=== PATIENT | female | born 1995 ===

== ENCOUNTER 2022-02-05 19:19 | Outpatient (CLI) | payer OTHER ==
[2022-02-05] MEDS ORDERED: LACTATED RINGERS 1,000 ML IV ONE (20:25)
[2022-02-05] MEDS ORDERED: LACTATED RINGERS 1,000 ML ONE (20:28)
[2022-02-05 20:42] LABS: Bacteria,Urine 1+ /HPF (Negative); Bilirubin,Urine NEG (Negative); Blood,Urine NEG (Negative); Color,Urine Yellow (Yellow); Mucus,Urine 3+ /HPF; Urobilinogen,Urine < 2.0 mg/dL (<2.0)
[2022-02-05 20:59] VITALS: BP 118/67
== END 2022-02-05 22:31 | disposition home or self-care (01) ==
LOC: TRG 19:19 → APU 19:22 → TRG 22:31
PROVIDERS: ATTEND Obstetrics & Gynecology
DX: O42.913 Preterm premature rupture of membranes, unspecified as to length of time between rupture and onset of labor, third trimester (principal); O26.893 Other specified pregnancy related conditions, third trimester; R10.2 Pelvic and perineal pain; Z3A.35 35 weeks gestation of pregnancy
CPT/HCPCS: 59025; 81001; 96360; J7120

== ENCOUNTER 2022-02-08 19:22 | Inpatient (IN) | payer OTHER ==
[2022-02-08] MEDS ORDERED: LACTATED RINGERS 500 ML IV ONE (20:07)
[2022-02-08] MEDS ORDERED: PENICILLIN G POTASSIUM 5 MIL.UNITS in SODIUM CHLORIDE 0.9% 50 ML IV ONE (21:08)
[2022-02-08] MEDS ORDERED: ePHEDrine SULFATE 50 MG/1 ML INJ IV PRN (21:08)
[2022-02-08] MEDS ORDERED: NalbUPHINE 10 MG/1 ML INJ IV PRN (21:08)
[2022-02-08] MEDS ORDERED: TERBUTALINE 1 MG/1 ML INJ SUB-Q PRN (21:08)
[2022-02-08] MEDS ORDERED: CARBOPROST TROMETHAMINE 250 MCG/1 ML INJ IM PRN (21:08)
[2022-02-08] MEDS ORDERED: fentaNYL 100 MCG/2 ML INJ IV PRN (21:08)
[2022-02-08] MEDS ORDERED: METHYLERGONOVINE MALEATE 0.2 MG/ML VIAL IM PRN (21:08)
[2022-02-08] MEDS ORDERED: ACETAMINOPHEN 325 MG TAB PO PRN ×2 (21:08→23:04)
[2022-02-08] MEDS ORDERED: LACTATED RINGERS 1,000 ML IV SCH (21:15)
--- NOTE | 2022-02-08 21:20 | History and Physical Report ---
History of Present Illness Date of examination: 02/08/22 Date of admission: 02/08/2022 Chief complaint: Contractions History of present illness: 26-year-old at 36-2/7 weeks gestation presents to OB triage reporting regular and painful contractions occurring every 2 minutes. No vaginal bleeding. No leakage of fluid. Good movement. In OB triage, the cervical exam was noted to be 8 cm dilated. She is admitted to labor and delivery in labor. Past History Past Medical History: no pertinent history Past Surgical History: no surgical history Social history: no significant social history - Obstetrical History Expected Date of Delivery: 03/06/22 Actual Gestation: 36 Week(s) 2 Day(s) : 4 Para: 3 Number of Pregnancies: 3 Medications and Allergies Allergies Allergy/AdvReac Type Severity Reaction Status Date / Time No Known Allergies Allergy Unverified 02/05/22 20:24 Home Medications Medication Instructions Recorded Confirmed Last Taken Type Plus Iron Tablet 1 tab PO QDAY 02/05/22 02/05/22 02/05/22 10:00 History Active Meds: Active Medications Acetaminophen (Acetaminophen 325 Mg Tab) 650 mg PO Q4H PRN PRN Reason: Pain, Mild (1-3) Betamethasone Acet/Betameth SodPhos (Betamet Acet/Betamet Na Ph 6 Mg/Ml Inj 5 Ml Mdv) 12 mg IM Q24HR PAUL Stop: 02/09/22 10:01 Carboprost Tromethamine (Carboprost Tromethamine 250 Mcg/1 Ml Inj) 250 mcg IM ONCE PRN PRN Reason: Uterine Bleeding Ephedrine Sulfate (Ephedrine Sulfate 50 Mg/1 Ml Inj) 10 mg IV Q2M PRN PRN Reason: Hypotension Fentanyl (Fentanyl 100 Mcg/2 Ml Inj) 100 mcg IV Q2H PRN PRN Reason: Pain,Severe (7-10) LABOR PAIN Lactated Ringer's (Lactated Ringers) 1,000 mls @ 125 mls/hr IV DIRECT PAUL Oxytocin/Sodium Chloride (Pitocin/Ns 30 Unit/500ml) 30 units in 500 mls @ 40 mls/hr IV TITR PAUL; Protocol Penicillin G Potassium 2.5 mil (.units/ Sodium Chloride) 50 mls @ 100 mls/hr IV Q4H PAUL; Protocol Penicillin G Potassium 5 mil. (units/ Sodium Chloride) 50 mls @ 100 mls/hr IV ONCE ONE; Protocol Stop: 02/08/22 21:37 Methylergonovine Maleate (Methylergonovine Maleate 0.2 Mg/Ml Vial) 0.2 mg IM ONCE PRN PRN Reason: Uterine Bleeding Nalbuphine HCl (Nalbuphine 10 Mg/1 Ml Inj) 10 mg IV Q2H PRN PRN Reason: Pain, Moderate (4-6) Terbutaline Sulfate (Terbutaline 1 Mg/1 Ml Inj) 0.25 mg SUB-Q ONCE PRN PRN Reason: Hyperstimulation/Hypertonicity Review of Systems All systems: negative - Vital Signs Vital signs: Vital Signs Pulse Resp BP Pulse Ox 70 18 114/61 100 02/08/22 20:14 02/08/22 20:14 02/08/22 20:14 02/08/22 20:14 Temp Pulse Resp BP Pulse Ox 69 18 114/61 99 02/08/22 21:10 02/08/22 20:14 02/08/22 20:14 02/08/22 21:10 - Physical Exam Breasts: Positive: normal Cardiovascular: Regular rate Lungs: Positive: Normal air movement Abdomen: Positive: normal appearance Genitourinary (Female): Positive: normal external genitalia, normal perenium Vulva: both: normal Vagina: Positive: normal moisture Uterus: Positive: enlarged Adnexa: both: normal Anus/Rectum: Positive: normal perianal skin Extremities: Positive: normal Deep Tendon Reflex Grade: Normal +2 - Obstetrical FHR: category 1 Uterine Contraction Monitor Mode: External Cervical Dilatation: 8 Cervical Effacement Percentage: 90 station: 0 Uterine Contraction Frequency (min): 5 Uterine Contraction Pattern: Regular Results All other labs normal. Ultrasound: pending Assessment and Plan - Patient Problems (1) 36 weeks gestation of Current Visit: Yes Status: Acute Plan to address problem: care is up-to-date. Betamethasone x2 ordered to promote lung maturity per data from the ALPS trial. As the patient's gestational age is below 37 weeks, will prescribe penicillin for GBS prophylaxis per CDC MMWR 2010. (2) labor in second trimester with delivery Current Visit: Yes Status: Acute Plan to address problem: Admit to labor and delivery. Expectant management for now. I anticipate spontaneous vaginal delivery.
[2022-02-08] MEDS ORDERED: AMPICILLIN/NS 2 GM/100 ML 0 GM/0 ML BAG IV ONE (21:29)
[2022-02-08] MEDS ORDERED: BETAMET ACET/BETAMET NA PH 6 MG/ML INJ 5 ML MDV IM SCH (22:00)
[2022-02-08] MEDS ORDERED: OXYTOCIN DRIP 30 UNITS/500 ML BAG IV SCH (22:00)
[2022-02-08] MEDS ORDERED: ONDANSETRON 4 MG/2 ML INJ IV PRN (23:04)
[2022-02-08] MEDS ORDERED: HYDROcodone/ACETAMINOPHEN 5-325 MG TAB PO PRN (23:04)
[2022-02-08] MEDS ORDERED: BENZOCAINE/MENTHOL 20/0.5% TOP SPRAY 56 GM TP PRN (23:04)
[2022-02-08] MEDS ORDERED: LANOLIN/ZINC/DIMETHICONE (LANSINOH) 7 GM TP PRN (23:04)
[2022-02-08] MEDS ORDERED: WITCH HAZEL/ GLYCERIN PAD TP PRN (23:04)
[2022-02-08] MEDS ORDERED: MAGNESIUM HYDROXIDE (MOM) ORAL LIQD UDC PO PRN (23:04)
[2022-02-08] MEDS ORDERED: diphenhydrAMINE 25 MG CAP PO PRN (23:04)
--- NOTE | 2022-02-08 23:16 | Procedure Note ---
OB Delivery Note - Delivery Date of Delivery: 02/08/22 Surgeon: SHARLA CHÁVEZ Estimated blood loss: 300cc - Vaginal Delivery position: OA Intrapartum events: labor-<37 weeks Delivery induction: none Delivery monitor: external FHT, external uterine Delivery placenta: spontaneous Delivery cord: 3 umbilical vessels Episiotomy: none Delivery laceration: none Anesthesia: none Delivery comments: 26-year-old at 36-2/7 weeks presented to OB triage in labor. She was admitted to labor and delivery. Her first dose of betamethasone was administered to promote lung maturity per data from the ALPS trial. Penicillin was started for GBS prophylaxis. The patient reached complete cervical dilation. Membranes ruptured spontaneously. The patient delivered a liveborn male without difficulty. - Infant A at 1 minute: 8 at 5 minutes: 9 Infant Gender: Male
[2022-02-09 00:37] LABS: Hematocrit 34.1 % (30.3-42.9); Hemoglobin 10.9 gm/dl (10.1-14.3); Mean Corpuscular HGB Conc 32 % (30-34); Mean Corpuscular Volume 84 fl (79-97); Platelet Count 287 K/mm3 (140-440); Red Blood Count 4.08 M/mm3 (3.65-5.03); Red Cell Distribution Width 14.9 % (13.2-15.2)
[2022-02-09] MEDS ORDERED: PENICILLIN G POTASSIUM 2.5 MIL.UNITS in SODIUM CHLORIDE 0.9% 50 ML IV SCH (02:00)
[2022-02-09] MEDS: IBUPROFEN 800 MG TAB PO SCH ×3 (06:44→23:17)
--- NOTE | 2022-02-09 06:44 | Ultrasound Report ---
ULTRASOUND OBSTETRIC INDICATION / CLINICAL INFORMATION: labor. TECHNIQUE: Transabdominal. COMPARISON: None available. FINDINGS: There is a single intrauterine . Biparietal Diameter = 8.82 cm = 35.5 weeks.days Head Circumference = 29.52 cm = 32.4 weeks.days Abdominal Circumference = 35.02 cm = 38.6 weeks.days Femur Length = 6.14 cm = 31.6 weeks.days Average Ultrasound Age (AUA) = 34.2 weeks.days Heart Rate: 137 beats per minute. Estimated Weight in grams (if calculated): 2882 Estimated Weight Growth Percentile (if calculated): 51 Position: cephalic. Amniotic Fluid Volume: Qualitatively normal IMPRESSION: 1. Single, living intrauterine with estimated sonographic age of 34.2 weeks.days 2. No significant sonographic abnormality. Signer Name: Horace Yun MD Signed: 02/09/2022 6:40 AM Workstation Name: [id number]
[2022-02-09 11:04] LABS: Hematocrit 31.2 % (30.3-42.9); Mean Corpuscular HGB Conc 32 % (30-34); Mean Corpuscular Volume 83 fl (79-97); Platelet Count 280 K/mm3 (140-440); Red Blood Count 3.74 M/mm3 (3.65-5.03); Red Cell Distribution Width 14.3 % (13.2-15.2)
--- NOTE | 2022-02-09 13:06 | Progress Note ---
Assessment and Plan PPD#1 with severe pelvic pain suspicious for pubic diastases; Acute endomyometritis 1. Will do pelvic xray to evaluate pubic diastases and will consult physical therapy if same present. Pt instructed to wear tight pelvic girdle 2. Pt educated to void every 3-4hr and call nurse if she soaks pads every 2hrs 3. Will repeat CBC in am and may consider pelvic ultrasound if significant fall in hgb 4. Will give augmentin for endomyometritis 5. Routine care Plan of care discussed. All questions encouraged and answered Subjective Date of service: 02/09/22 Principal diagnosis: PPD#1, severe anterior hip pain Interval history: Pt c/o of severe pain to anterior hip x3 wk prior to delivery that has worsened. Pt also states that she told the nurse overnight that her bleeding was heavy. pt admits to feeling week. pt plans to breast and has bottle fed overnight. Pt denies fever or chills. Pt has difficulty getting out of bed and needs assistance from her to rise out of bed. Objective - Constitutional Vitals: Vital Signs - 12hr 02/09/22 02/09/22 02/09/22 01:25 02:48 04:00 Temperature 98.3 F 98.6 F Pulse Rate 67 53 L Respiratory 22 Rate Blood Pressure 105/43 Blood Pressure 124/82 [Right] O2 Sat by Pulse 98 98 Oximetry O2 Sat by Pulse 97 Oximetry [ Bilateral] 02/09/22 02/09/22 07:24 12:26 Temperature 98.5 F 98.9 F Pulse Rate 65 95 H Respiratory 16 20 Rate Blood Pressure 107/56 113/46 Blood Pressure [Right] O2 Sat by Pulse 93 95 Oximetry O2 Sat by Pulse Oximetry [ Bilateral] General appearance: Present: mild distress - Neck Neck: normal ROM - Respiratory Respiratory effort: normal - Breasts Breasts: normal - Cardiovascular Rhythm: other (tacchycardia in 110's) Extremities: No edema - Gastrointestinal General gastrointestinal: Present: soft, non-tender - Genitourinary Female genitourinary: other (Fundus 2cm above umbilicus and gush of blood when massaged, repeat exam post urination 1cm below umbilicus and positive tenderness; blood dark red without clots) - Integumentary Integumentary: warm, dry - Neurologic Neurologic: other (pain on moving both lower extremities at anterior hip section) - Psychiatric Psychiatric: cooperative - Labs CBC & Chem 7: 02/09/22 10:24 Labs: Abnormal lab results 02/08/22 02/09/22 Range/Units 22:00 10:24 WBC 15.6 H (4.5-11.0) K/mm3 Hgb 10.0 L (10.1-14.3) gm/dl MCH 27 L 27 L (28-32) pg Medications & Allergies - Medications Allergies/Adverse Reactions: Allergies No Known Allergies Allergy (Unverified 02/05/22 20:24) Home Medications: Home Medications Medication Instructions Recorded Confirmed Last Taken Type Plus Iron Tablet 1 tab PO QDAY 02/05/22 02/09/22 02/05/22 10:00 History Active Medications: Generic Name Dose Route Start Last Admin Trade Name Freq PRN Reason Stop Dose Admin Acetaminophen 650 mg 02/08/22 23:04 Acetaminophen 325 Mg Tab PO Q4H PRN Pain MILD(1-3)/Fever >100.5/WAY Hydrocodone Bitart/Acetaminophen 2 each 02/08/22 23:04 Hydrocodone/Acetaminophen 5-325 Mg Tab PO Q6H PRN Pain, Moderate (4-6) Amoxicillin/Clavulanate Potassium 1 each 02/09/22 12:55 Amoxicillin/K Clav 875/125mg Tab PO Q12HR [facility] Protocol Benzocaine/Menthol 1 spray 02/08/22 23:04 Benzocaine/Menthol 20/0.5% [place] 56 Gm TP PRN PRN Episiotomy Pain Diphenhydramine HCl 25 mg 02/08/22 23:04 Diphenhydramine 25 Mg Cap PO Q6H PRN Itching Ibuprofen 800 mg 02/08/22 23:45 02/09/22 06:44 Ibuprofen 800 Mg Tab PO 800 mg Q6HR PAUL Administration Magnesium Hydroxide 30 ml 02/08/22 23:04 Magnesium Hydroxide (Mom) Oral Liqd Udc PO HS PRN Constipation Multi-Ingredient Ointment 1 applic 02/08/22 23:04 Lanolin/Zinc/Dimethicone (Lansinoh) 7 Gm TP PRN PRN Sore Nipples Multivitamins/Iron/Calcium 1 each 02/09/22 10:00 [id number] Fumarate-Folic Acid Vit Tab PO QDAY PAUL Ondansetron HCl 4 mg 02/08/22 23:04 Ondansetron 4 Mg/2 Ml Inj IV Q8H PRN Nausea And Vomiting Sodium Chloride 10 ml 02/08/22 23:45 Sodium Chloride 0.9% 10 Ml Flush Syringe IV PRN PRN LINE FLUSH Witch Karen/Glycerin 1 each 02/08/22 23:04 Witch Karen/ Glycerin Pad TP PRN PRN Hemorrhoid/cleansing/soothing
[2022-02-09] MEDS: PRENATAL VIT27-FE FUMARATE-FOLIC ACID VIT TAB PO SCH (13:07)
--- NOTE | 2022-02-09 14:22 | XRay Report ---
PELVIS 3 VIEW(S) INDICATION / CLINICAL INFORMATION: severe pelvic pain, PPD#1, , pubic diastases COMPARISON: None available. FINDINGS: BONES / JOINT(S): No acute fracture or subluxation. Mild widening of the pubic symphysis, likely with in normal limits given state SOFT TISSUES: No significant abnormality. ADDITIONAL FINDINGS: None. Signer Name: Dannie Archuleta DO Signed: 02/09/2022 2:18 PM Workstation Name: [id number]
[2022-02-09] MEDS: AMOXICILLIN/K CLAV 875/125MG TAB PO SCH (17:23)
--- NOTE | 2022-02-10 02:59 | Progress Note ---
Assessment and Plan PPD#2 with pelvic pain anteriorly form pubic diastases 1. Continue pelvic girdle; would consult physical therapy if available 2. May have percocet if pain not well relieved 3. routine care 4. repeat cbc this am Plan of care discussed and pt will be discharge at a later date with better pain control Subjective Date of service: 02/10/22 Principal diagnosis: PPD#2, with symptomatic pubic diastases Interval history: pt pain controlled with motrin meds and pt ambulation improved but she has to walk very slow. pt has not taken percocet and declines same. pt is still breast feeding. Pt had Xray done to evaluate for pelvic diastases. Pt voids without difficulty Objective - Constitutional Vitals: Vital Signs - 12hr 02/09/22 02/09/22 02/09/22 15:32 20:00 22:12 Temperature 98.4 F Pulse Rate 65 Respiratory 16 Rate Blood Pressure 105/64 O2 Sat by Pulse 96 Oximetry O2 Sat by Pulse 98 98 Oximetry [ Bilateral] 02/09/22 02/10/22 02/10/22 23:16 01:03 01:25 Temperature 98.5 F Pulse Rate 73 Respiratory 20 Rate Blood Pressure 100/48 O2 Sat by Pulse 98 Oximetry O2 Sat by Pulse 97 98 Oximetry [ Bilateral] General appearance: Present: no acute distress (while sitting in bed) - Neck Neck: normal ROM - Respiratory Respiratory effort: normal - Breasts Breasts: deferred - Cardiovascular Rhythm: regular - Gastrointestinal General gastrointestinal: Present: soft, non-tender - Genitourinary Female genitourinary: other (Fundus firm and below the umbilicus and non-tender; lochia moderate) - Integumentary Integumentary: warm, dry - Neurologic Neurologic: moves all extremities - Psychiatric Psychiatric: cooperative - Labs CBC & Chem 7: 02/09/22 10:24 Labs: Abnormal lab results 02/09/22 Range/Units 10:24 WBC 15.6 H (4.5-11.0) K/mm3 Hgb 10.0 L (10.1-14.3) gm/dl MCH 27 L (28-32) pg Medications & Allergies - Medications Allergies/Adverse Reactions: Allergies No Known Allergies Allergy (Unverified 02/05/22 20:24) Home Medications: Home Medications Medication Instructions Recorded Confirmed Last Taken Type Plus Iron Tablet 1 tab PO QDAY 02/05/22 02/09/22 02/05/22 10:00 History Amoxicillin/Potassium Clav 1 each PO BID 5 Days #10 02/10/22 Unknown Rx [Augmentin 875-125 Tablet] Ibuprofen [Motrin] 800 mg PO Q8HR PRN 21 Days #40 02/10/22 Unknown Rx tablet Active Medications: Generic Name Dose Route Start Last Admin Trade Name Freq PRN Reason Stop Dose Admin Acetaminophen 650 mg 02/08/22 23:04 Acetaminophen 325 Mg Tab PO Q4H PRN Pain MILD(1-3)/Fever >100.5/WAY Hydrocodone Bitart/Acetaminophen 2 each 02/08/22 23:04 Hydrocodone/Acetaminophen 5-325 Mg Tab PO Q6H PRN Pain, Moderate (4-6) Amoxicillin/Clavulanate Potassium 1 each 02/09/22 13:55 02/09/22 17:23 Amoxicillin/K Clav 875/125mg Tab PO 1 each Q12HR PAUL Administration Protocol Benzocaine/Menthol 1 spray 02/08/22 23:04 Benzocaine/Menthol 20/0.5% [place] 56 Gm TP PRN PRN Episiotomy Pain Diphenhydramine HCl 25 mg 02/08/22 23:04 Diphenhydramine 25 Mg Cap PO Q6H PRN Itching Ibuprofen 800 mg 02/08/22 23:45 02/09/22 23:17 Ibuprofen 800 Mg Tab PO 800 mg Q6HR PAUL Administration Magnesium Hydroxide 30 ml 02/08/22 23:04 Magnesium Hydroxide (Mom) Oral Liqd Udc PO HS PRN Constipation Multi-Ingredient Ointment 1 applic 02/08/22 23:04 Lanolin/Zinc/Dimethicone (Lansinoh) 7 Gm TP PRN PRN Sore Nipples Multivitamins/Iron/Calcium 1 each 02/09/22 10:00 02/09/22 13:07 [id number] Fumarate-Folic Acid Vit Tab PO 1 each QDAY PAUL Administration Ondansetron HCl 4 mg 02/08/22 23:04 Ondansetron 4 Mg/2 Ml Inj IV Q8H PRN Nausea And Vomiting Sodium Chloride 10 ml 02/08/22 23:45 Sodium Chloride 0.9% 10 Ml Flush Syringe IV PRN PRN LINE FLUSH Witch Karen/Glycerin 1 each 02/08/22 23:04 Witch Karen/ Glycerin Pad TP PRN PRN Hemorrhoid/cleansing/soothing
[2022-02-10] MEDS: AMOXICILLIN/K CLAV 875/125MG TAB PO SCH ×2 (05:30→16:51)
[2022-02-10] MEDS: IBUPROFEN 800 MG TAB PO SCH ×2 (05:31→16:51)
[2022-02-10] MEDS: PRENATAL VIT27-FE FUMARATE-FOLIC ACID VIT TAB PO SCH (10:18)
[2022-02-10 16:13] LABS: Basophils % (Auto) 0.4 % (0.0-1.8); Eosinophils # (Auto) 0.1 K/mm3 (0.0-0.4); Eosinophils % (Auto) 1.1 % (0.0-4.3); Hemoglobin 9.4 gm/dl (10.1-14.3); Lymphocytes # (Auto) 2.7 K/mm3 (1.2-5.4); Lymphocytes % (Auto) 24.1 % (13.4-35.0); Mean Corpuscular HGB Conc 33 % (30-34); Mean Corpuscular Volume 84 fl (79-97); Monocytes # (Auto) 0.9 K/mm3 (0.0-0.8); Monocytes % (Auto) 7.7 % (0.0-7.3); Platelet Count 320 K/mm3 (140-440); Red Blood Count 3.47 M/mm3 (3.65-5.03); Red Cell Distribution Width 14.8 % (13.2-15.2)
[2022-02-11] MEDS: IBUPROFEN 800 MG TAB PO SCH ×2 (00:18→05:47)
[2022-02-11] MEDS: AMOXICILLIN/K CLAV 875/125MG TAB PO SCH (05:48)
--- NOTE | 2022-02-11 10:19 | Progress Note ---
Assessment and Plan A: day 3 S/P . Anemia. Diastasis of symphisis pubis; no longer symptomatic. P: Discharge patient home today. Discussed with patient discharge instructions and warning signs. Advised patient to continue taking her vitamin and iron supplements at home. Advised patient to continue wearing her abdominal support binder at home as needed. Advised patient to avoid intercourse, lifting, housework, driving. Advised patient to follow up at [facility] office in 2 weeks. Patient voiced understanding of all instructions. Subjective - Subjective Date of service: 02/11/22 Principal diagnosis: PPD#3, with symptomatic pubic diastases Interval history: Patient states she is ambulating without difficulty. Feeling much better and desires discharge home today. Bottlefeeding and . No complaints. Patient reports: appetite normal, voiding normally, pain well controlled, flatus, bowel movement, ambulating normally, no dizzy ambulation, no nauseated [place]: doing well, nursing well, bottle feeding Objective - Vital Signs Latest vital signs: Vital Signs Temp Pulse Resp BP BP Pulse Ox Pulse Ox 02/11/22 08:40 97.8 F 60 18 108/62 97 02/11/22 05:45 98 02/11/22 03:40 98 02/11/22 02:25 98 02/11/22 00:36 98.4 F 72 18 109/59 98 02/11/22 00:16 98 02/10/22 21:30 98 02/10/22 20:15 98 02/10/22 15:00 97.7 F 60 17 107/52 100 02/10/22 14:54 97.7 F 58 L 17 107/52 100 Intake and Output 02/10/22 02/11/22 02/11/22 23:59 07:59 15:59 Intake Total 360 360 Balance 360 360 Intake: Oral 360 Intake, Free Water 360 Other: Total, Intake Amount 360 Voiding Method Toilet # Voids Void 1 1 - Exam Cardiovascular: Present: Regular rate, No murmurs Lungs: Present: Clear to auscultation Abdomen: Present: normal appearance, soft, normal bowel sounds. Absent: distention, tenderness, guarding, rigidity Uterus: Present: normal, firm, fundal height below umbilicus (fundus firm and midline at 1 FB below umbilicus). Absent: bogginess, tenderness Extremities: Absent: tenderness - Labs Labs: Abnormal lab results 02/10/22 Range/Units 13:47 WBC 11.2 H (4.5-11.0) K/mm3 RBC 3.47 L (3.65-5.03) M/mm3 Hgb 9.4 L (10.1-14.3) gm/dl Hct 29.0 L (30.3-42.9) % MCH 27 L (28-32) pg [place] % (Auto) 7.7 H (0.0-7.3) % [place] # (Auto) 0.9 H (0.0-0.8) K/mm3
--- NOTE | 2022-02-11 10:24 | Discharge Summary ---
Providers - Providers Date of Admission: 02/08/22 23:04 Date of discharge: 02/11/22 Attending physician: KARL ZURITA MD Primary care physician: KARL ZURITA MD Hospitalization Reason for admission: active labor Delivery: Episiotomy: none Laceration: none Other procedures: none complications: other (diastasis of symphisis pubis, symptoms resolved) Discharge diagnosis: IUP at term delivered baby: male Pertinent studies: Labs Hospital course: Stable hospital course Condition at discharge: Good Disposition: 01 HOME / SELF CARE / HOMELESS - Discharge Diagnoses (1) Term delivered Status: Acute (2) Anemia Status: Acute Plan - Discharge Medications Prescriptions: Amoxicillin/Potassium Clav [Augmentin 875-125 Tablet] 1 each PO BID 5 Days #10 Ibuprofen [Motrin] 800 mg PO Q8HR PRN 21 Days #40 tablet PRN Reason: Pain, Moderate (4-6) - Provider Discharge Summary Activity: routine, no sex for 6 weeks, no heavy lifting 4 weeks, no strenuous exercise Diet: routine Instructions: routine Additional instructions: Continue taking your vitamin and iron supplements at home. Follow up at [facility] in 2 weeks. Call your doctor immediately for: * Fever > 100.5 * Heavy vaginal bleeding ( >1 pad per hour) * Severe persistent headache * Shortness of breath * Reddened, hot, painful area to leg or breast - Follow up plan Follow up: MICHAEL NOVAK CNM [Advanced Practice Nurse] - 14 Days
[2022-02-11 15:51] VITALS: BP 112/66
== END 2022-02-11 15:38 | disposition home or self-care (01) | DRG 806 ==
LOC: TRG 19:22 → APU 20:39 → LD 21:38 → TRG 23:04 → LD 23:04 → OB 02-09 01:31
PROVIDERS: ADMIT Obstetrics & Gynecology; ATTEND Obstetrics & Gynecology
PROC: 10E0XZZ Delivery of Products of Conception, External Approach (ICD-10-PCS; principal; 2022-02-08)
DX: O60.14X0 Preterm labor third trimester with preterm delivery third trimester, not applicable or unspecified (principal); O86.12 Endometritis following delivery; Z37.0 Single live birth; Z3A.36 36 weeks gestation of pregnancy; Z20.822 Contact with and (suspected) exposure to COVID-19; O90.81 Anemia of the puerperium
CPT/HCPCS: 36415; 59025; 72190; 76816; 84112; 85025; 85027; 86592; 86706; 86762; 86850; 86900; 86901; 87535; G0378; J0702; J2540; J2590; J7120; U0003